=== PATIENT | female | born 1965 | race Two or more races ===

== ENCOUNTER 2016-12-06 04:05 | Emergency (ER) | payer MEDICAID ==
[~2016-12-06] VITALS: Ht 157.5 cm; Wt 63.5 kg
[~2016-12-06 04:05] MED LIST: DEPAKOTE
[2016-12-06 04:55] VITALS: BP 128/64
[2016-12-06] MEDS ORDERED: cefTRIAXone SOD 1,000 MG VL IM ONE (05:15)
[2016-12-06 05:19] LABS: Urine RBC None Seen /hpf (0 - 4)
[2016-12-06 05:29] LABS: Urine Bilirubin Negative (Negative); Urine Blood Negative /uL (Negative); Urine Glucose Normal (Normal); Urine Ketone Negative (Negative); Urine Nitrite Negative (Negative); Urine Urobilinogen Normal (Negative)
[2016-12-06 05:30] LABS: Urine Color Straw (Yellow)
== END 2016-12-06 05:44 | disposition home or self-care (01) ==
LOC: EDUNIT# 04:05 → EDBD 04:05 → ER 04:09
DX: N39.0 Urinary tract infection, site not specified (principal); Z79.899 Other long term (current) drug therapy
CPT/HCPCS: 81001; 96372; 99283; J0696

== ENCOUNTER 2020-12-22 19:25 | Emergency (ER) | payer MEDICAID ==
[~2020-12-22] VITALS: Ht 157.5 cm; Wt 56.7 kg
[2020-12-22] MEDS ORDERED: SODIUM CHLORIDE 0.9% 1,000 ML IV ONE ×2 (19:45)
[2020-12-23 00:11] LABS: Magnesium 2.1 mg/dL (1.6-2.6)
[2020-12-23 00:57] LABS: Urine Bacteria FEW /hpf (None Seen); Urine Blood Negative /uL (Negative); Urine Mucus FEW (None Seen); Urine WBC 66 /hpf (0 - 5)
[2020-12-23] MEDS ORDERED: levoFLOXacin 500 MG TAB PO ONE (02:45)
[2020-12-23 04:00] VITALS: BP 119/46
== END 2020-12-23 04:41 | disposition home or self-care (01) ==
LOC: EDBD 19:25 → ER 19:27
DX: R53.1 Weakness (principal); R42 Dizziness and giddiness
CPT/HCPCS: 36415; 70450; 71045; 74176; 81001; 83735; 83880; 84484; 93005; 96360; 99285; J7030

== ENCOUNTER 2021-07-16 20:12 | Emergency (ER) | payer MEDICAID ==
[~2021-07-16] VITALS: Ht 157.5 cm; Wt 59.0 kg
[2021-07-16 21:11] LABS: Basophils # (auto) 0 10 ^3/uL (0-0.2); Basophils % (auto) 0.7 % (0.0-2.0); Eosinophils # (auto) 0.1 10 ^3/uL (0-0.8); Eosinophils % (auto) 1.1 % (0.0-7.0); Hemoglobin 12.9 g/dL (12.2-16.2); Lymphocytes # (auto) 1.9 10 ^3/uL (0.4-5.4); Lymphocytes % (auto) 29.6 % (10.0-50.0); Mean Corpuscular Hemoglobin 33.1 pg (28.0-32.0); Mean Corpuscular Volume 94.4 fL (80.0-100.0); Monocytes # (auto) 0.4 10 ^3/uL (0-1.3); Monocytes % (auto) 6.9 % (0.0-12.0); Neutrophils % (auto) 61.7 % (37.0-80.0); Nucleated Red Blood Cells % 0.1 %; Red Blood Cells 3.91 10^6/uL (4.0-5.20); Red Cell Distribution Width 13.8 % (11.8-14.3); White Blood Cell 6.4 10^3/uL (4.4-10.8)
[2021-07-16 21:26] LABS: Potassium 3.8 mmol/L (3.5-5.1)
[2021-07-16 21:29] LABS: Albumin 3.7 g/dL (3.4-5.0); BUN/Creatinine Ratio 15.7; Calcium 9.8 mg/dL (8.5-10.1)
[2021-07-16 21:45] LABS: Bilirubin, Total 0.4 mg/dL (0.2-1.0); Total Protein 7.5 g/dL (6.4-8.2)
[2021-07-17 02:30] VITALS: BP 137/51
[2021-07-17] MEDS ORDERED: NITR-87 PO (20:27)
[2021-07-22] MEDS ORDERED: DIVA500T2 PO (14:52)
[2021-07-22] MEDS ORDERED: LAMO25CH17 PO (14:52)
[2021-07-22] MEDS ORDERED: IBU600T PO (14:52)
== END 2021-07-17 04:05 | disposition home or self-care (01) ==
LOC: ER 20:14
DX: R42 Dizziness and giddiness (principal); Z59.00 Homelessness unspecified
CPT/HCPCS: 36415; 80053; 84484; 85025; 93005

== ENCOUNTER → 2021-07-17 10:19 | Emergency (ER) | payer MEDICAID ==
[~2021-07-17] VITALS: Ht 165.1 cm; Wt 69.9 kg
[~2021-07-17 10:19] MED LIST changes: +DIVA500T2 PO; +IBU600T PO; +LAMO25CH17 PO; +NITR-87 PO
[2021-07-17 11:15] LABS: Basophils # (auto) 0.1 10 ^3/uL (0-0.2); Basophils % (auto) 0.9 % (0.0-2.0); Eosinophils # (auto) 0.1 10 ^3/uL (0-0.8); Eosinophils % (auto) 1.2 % (0.0-7.0); Hematocrit 36.6 % (36.0-46.0); Hemoglobin 12.7 g/dL (12.2-16.2); Lymphocytes # (auto) 1.5 10 ^3/uL (0.4-5.4); Lymphocytes % (auto) 23.9 % (10.0-50.0); Mean Corpuscular Hemoglobin 32.7 pg (28.0-32.0); Mean Corpuscular Hgb Conc. 34.7 g/dL (32.0-36.0); Mean Corpuscular Volume 94.2 fL (80.0-100.0); Monocytes # (auto) 0.4 10 ^3/uL (0-1.3); Monocytes % (auto) 6.5 % (0.0-12.0); Neutrophils # (auto) 4.3 10 ^3/uL (1.6-8.6); Neutrophils % (auto) 67.5 % (37.0-80.0); Red Blood Cells 3.89 10^6/uL (4.0-5.20); Red Cell Distribution Width 13.8 % (11.8-14.3); White Blood Cell 6.4 10^3/uL (4.4-10.8)
[2021-07-17 11:36] LABS: Albumin 3.7 g/dL (3.4-5.0); BUN/Creatinine Ratio 17.1; Calcium 9.4 mg/dL (8.5-10.1); Magnesium 2.3 mg/dL (1.6-2.6); Potassium 3.8 mmol/L (3.5-5.1)
[2021-07-17 11:39] LABS: Bilirubin, Total 0.4 mg/dL (0.2-1.0)
[2021-07-17 16:25] LABS: Urine Bacteria FEW /hpf (None Seen); Urine Blood Negative /uL (Negative); Urine Mucus FEW (None Seen); Urine Specific Gravity 1.031 (1.001-1.035); Urine WBC 4 /hpf (0 - 5)
[2021-07-17 21:15] VITALS: BP 128/69
== END | disposition home or self-care (01) ==
LOC: EDUNIT# 10:18 → ER 10:19 → EDBD 10:19
DX: R42 Dizziness and giddiness (principal); R56.9 Unspecified convulsions; N39.0 Urinary tract infection, site not specified; Z88.6 Allergy status to analgesic agent
CPT/HCPCS: 36415; 70450; 80053; 81001; 83735; 84484; 85025; 93005

== ENCOUNTER 2021-07-19 10:05 | Emergency (ER) | payer MEDICAID ==
[~2021-07-19] VITALS: Ht 157.5 cm; Wt 59.0 kg
[~2021-07-19 10:05] MED LIST changes: -DIVA500T2 PO; -IBU600T PO; -LAMO25CH17 PO
[2021-07-19 10:37] LABS: Basophils # (auto) 0.1 10 ^3/uL (0-0.2); Basophils % (auto) 1.9 % (0.0-2.0); Eosinophils # (auto) 0.1 10 ^3/uL (0-0.8); Eosinophils % (auto) 1.6 % (0.0-7.0); Hematocrit 34.8 % (36.0-46.0); Hemoglobin 12.3 g/dL (12.2-16.2); Lymphocytes # (auto) 1.5 10 ^3/uL (0.4-5.4); Lymphocytes % (auto) 24.8 % (10.0-50.0); Mean Corpuscular Hemoglobin 33.6 pg (28.0-32.0); Mean Corpuscular Hgb Conc. 35.3 g/dL (32.0-36.0); Monocytes # (auto) 0.5 10 ^3/uL (0-1.3); Monocytes % (auto) 9.3 % (0.0-12.0); Neutrophils # (auto) 3.7 10 ^3/uL (1.6-8.6); Neutrophils % (auto) 62.4 % (37.0-80.0); Red Blood Cells 3.67 10^6/uL (4.0-5.20); Red Cell Distribution Width 13.7 % (11.8-14.3); White Blood Cell 5.9 10^3/uL (4.4-10.8)
[2021-07-19 10:59] LABS: Albumin 3.5 g/dL (3.4-5.0); Calcium 9.1 mg/dL (8.5-10.1)
[2021-07-19 11:13] LABS: BUN/Creatinine Ratio 18.3; Bilirubin, Total 0.2 mg/dL (0.2-1.0); Total Protein 7.6 g/dL (6.4-8.2)
[2021-07-19 14:35] VITALS: BP 114/74
== END 2021-07-19 14:44 | disposition home or self-care (01) ==
LOC: ER 10:05
DX: R07.89 Other chest pain (principal); I10 Essential (primary) hypertension; R42 Dizziness and giddiness; Z90.710 Acquired absence of both cervix and uterus; Z88.6 Allergy status to analgesic agent
CPT/HCPCS: 36415; 71045; 80053; 84484; 85025; 93005

== ENCOUNTER 2021-07-20 13:40 | Inpatient (IN) | payer MEDICAID ==
[~2021-07-20] VITALS: Ht 157.5 cm; Wt 56.8 kg
[2021-07-20 16:05] LABS: Basophils # (auto) 0.1 10 ^3/uL (0-0.2); Eosinophils # (auto) 0.1 10 ^3/uL (0-0.8); Eosinophils % (auto) 1.6 % (0.0-7.0); Hematocrit 39.1 % (36.0-46.0); Hemoglobin 13.2 g/dL (12.2-16.2); Lymphocytes # (auto) 1.5 10 ^3/uL (0.4-5.4); Lymphocytes % (auto) 27.1 % (10.0-50.0); Mean Corpuscular Hemoglobin 32.4 pg (28.0-32.0); Mean Corpuscular Hgb Conc. 33.9 g/dL (32.0-36.0); Mean Corpuscular Volume 95.6 fL (80.0-100.0); Monocytes # (auto) 0.3 10 ^3/uL (0-1.3); Monocytes % (auto) 6.3 % (0.0-12.0); Neutrophils # (auto) 3.5 10 ^3/uL (1.6-8.6); Nucleated Red Blood Cells % 0.1 %; Red Blood Cells 4.09 10^6/uL (4.0-5.20); Red Cell Distribution Width 13.6 % (11.8-14.3); White Blood Cell 5.5 10^3/uL (4.4-10.8)
[2021-07-20 16:15] LABS: Alanine Aminotransferase 14 U/L (13-56); Albumin 3.7 g/dL (3.4-5.0); Anion Gap 9 (5-15); Aspartate Aminotransferase 11 U/L (15-37); BUN/Creatinine Ratio 11.4; Blood Alcohol < 3.0 mg/dL (0-5); Blood Urea Nitrogen 8 mg/dL (7-18); Calcium 9.5 mg/dL (8.5-10.1); Carbon Dioxide 25 mmol/L (21-32); Chloride 106 mmol/L (98-107); GFR African American 112 mL/min; GFR Non-African American 92 mL/min; Glucose 83 mg/dL (74-106); Magnesium 2.3 mg/dL (1.6-2.6); Potassium 4.1 mmol/L (3.5-5.1); Sodium 140 mmol/L (136-145)
[2021-07-20 16:18] LABS: Alkaline Phosphatase 91 U/L (45-117); Bilirubin, Total 0.4 mg/dL (0.2-1.0); Total Protein 7.7 g/dL (6.4-8.2)
[2021-07-20 16:57] LABS: Urine Bacteria FEW /hpf (None Seen); Urine Blood TRACE /uL (Negative); Urine Specific Gravity 1.015 (1.001-1.035); Urine WBC 2 /hpf (0 - 5)
[2021-07-20] MEDS ORDERED: MECLIZINE HCL 25 MG TAB PO ONE (21:45)
[2021-07-20] MEDS ORDERED: ONDANSETRON HCL 4 MG/2 ML VIAL IV ONE (21:45)
[2021-07-20] MEDS ORDERED: D5W/SOD CHL 0.45% 1,000 ML IV SCH (22:00)
[2021-07-20] MEDS ORDERED: DOCUSATE SOD 100 MG CAP PO PRN (22:00)
[2021-07-20] MEDS ORDERED: MECLIZINE HCL 25 MG TAB PO PRN (22:00)
[2021-07-20] MEDS ORDERED: LABETALOL HCL 5 MG/ML 4ML SYRINGE IV PRN (22:00)
[2021-07-20] MEDS ORDERED: ONDANSETRON HCL 4 MG/2 ML VIAL IV PRN (22:00)
[2021-07-20] MEDS ORDERED: NITROGLYCERIN 0.4 MG SL TAB SL PRN (23:30)
[2021-07-20] MEDS ORDERED: MORPHINE SULFATE INJECTION 2 MG/ML SYRG IV PRN (23:30)
[2021-07-20] MEDS ORDERED: lamoTRIgine 25 MG TAB PO ONE (23:30)
[2021-07-21] VITALS (9 sets, daily range): BP systolic 93–143; BP diastolic 35–70
[2021-07-21 08:17] LABS: Basophils # (auto) 0.1 10 ^3/uL (0-0.2); Basophils % (auto) 1.1 % (0.0-2.0); Eosinophils # (auto) 0.1 10 ^3/uL (0-0.8); Eosinophils % (auto) 2.3 % (0.0-7.0); Hematocrit 34.9 % (36.0-46.0); Hemoglobin 12.1 g/dL (12.2-16.2); Lymphocytes # (auto) 1.6 10 ^3/uL (0.4-5.4); Lymphocytes % (auto) 32.3 % (10.0-50.0); Mean Corpuscular Hemoglobin 32.9 pg (28.0-32.0); Mean Corpuscular Hgb Conc. 34.7 g/dL (32.0-36.0); Mean Corpuscular Volume 94.7 fL (80.0-100.0); Monocytes # (auto) 0.4 10 ^3/uL (0-1.3); Monocytes % (auto) 8.6 % (0.0-12.0); Neutrophils # (auto) 2.8 10 ^3/uL (1.6-8.6); Neutrophils % (auto) 55.7 % (37.0-80.0); Nucleated Red Blood Cells % 0.2 %; Red Blood Cells 3.68 10^6/uL (4.0-5.20); Red Cell Distribution Width 13.5 % (11.8-14.3); White Blood Cell 5.1 10^3/uL (4.4-10.8)
[2021-07-21 08:46] LABS: Albumin 3.2 g/dL (3.4-5.0); Calcium 8.8 mg/dL (8.5-10.1); Potassium 3.6 mmol/L (3.5-5.1)
[2021-07-21 08:50] LABS: BUN/Creatinine Ratio 12.7; Bilirubin, Total 0.5 mg/dL (0.2-1.0)
[2021-07-21] MEDS: ENOXAPARIN SOD 40 MG/0.4 ML SYRINGE SC SCH (11:15)
[2021-07-21] MEDS: lamoTRIgine 25 MG TAB PO SCH ×2 (11:16→22:06)
[2021-07-21] MEDS: SODIUM CHLORIDE 0.9% 1,000 ML IV SCH ×2 (11:37→19:15)
[2021-07-21 12:44] LABS: CRP High Sensitivity 0.4 mg/dL (< 0.3)
[2021-07-21] MEDS: MECLIZINE HCL 25 MG TAB PO SCH ×2 (14:02→22:06)
[2021-07-21] MEDS ORDERED: ACETAMINOPHEN 325 MG TAB PO PRN (15:00)
[2021-07-21 15:04] LABS: Alcohol, Urine < 3.0 mg/dL (0-10); Amphetamine Screen, Urine NEGATIVE (NEGATIVE); Barbiturate Scree,Urine POSITIVE (NEGATIVE); Benzodiazephine Screen, Urine NEGATIVE (NEGATIVE); Cannabinoid Screen, Urine NEGATIVE (NEGATIVE); Cocaine Screen, Urine NEGATIVE (NEGATIVE); Opiate Scree,Urine NEGATIVE (NEGATIVE); Phencyclidine Screen, Urine NEGATIVE (NEGATIVE)
[2021-07-21] MEDS ORDERED: IBUPROFEN 600 MG TAB PO PRN (17:00)
[2021-07-22 05:00] VITALS: BP 108/42
[2021-07-22] MEDS: SODIUM CHLORIDE 0.9% 1,000 ML IV SCH ×3 (05:16→11:31)
[2021-07-22] MEDS: MECLIZINE HCL 25 MG TAB PO SCH ×2 (06:27→14:48)
[2021-07-22 09:00] VITALS: BP 116/51
[2021-07-22] MEDS: ENOXAPARIN SOD 40 MG/0.4 ML SYRINGE SC SCH ×2 (10:00→11:30)
[2021-07-22] MEDS: lamoTRIgine 25 MG TAB PO SCH (10:00)
[2021-07-22 12:33] LABS: Folate (Folic Acid) 15.34 ng/mL (5.38-24)
[2021-07-22 13:00] VITALS: BP 113/53
[2021-07-22] MEDS ORDERED: DIVA500T2 PO ×2 (14:52)
[2021-07-22] MEDS ORDERED: IBU600T PO ×2 (14:52)
[2021-07-22] MEDS ORDERED: LAMO25CH17 PO ×2 (14:52)
[2021-07-22 16:06] VITALS: BP 131/54
[2021-07-22 16:39] VITALS: BP 131/54
== END 2021-07-22 18:51 | disposition home or self-care (01) | DRG 111 ==
LOC: ER 13:40 → EDBD 13:40 → EDUNIT# 13:40 → EAST 23:17
PROVIDERS: ADMIT Nurse Practitioner Family; ATTEND Internal Medicine
DX: R42 Dizziness and giddiness (principal); G40.909 Epilepsy, unspecified, not intractable, without status epilepticus; R53.1 Weakness; R26.81 Unsteadiness on feet; I10 Essential (primary) hypertension; Z20.822 Contact with and (suspected) exposure to COVID-19; Z59.00 Homelessness unspecified; Z90.710 Acquired absence of both cervix and uterus
CPT/HCPCS: 36415; 70450; 70545; 70547; 70551; 71045; 80053; 80061; 80307; 80320; 81001; 82306; 82607; 82746; 83605; 83735; 84425; 84443; 84484; 85025; 86141; 93005; 93306; 96361; 96374; 97163; G0378; J2405

== ENCOUNTER 2024-07-13 11:58 | Emergency (ER) | payer MEDICAID ==
[~2024-07-13] VITALS: Ht 157.5 cm; Wt 57.0 kg
[~2024-07-13 11:58] MED LIST changes: -DEPAKOTE; +DIVA-91 PO; +IBU600T PO; +LAMO25CH21 PO; -NITR-87 PO
--- NOTE | 2024-07-13 12:55 | DVH ---
Indication: r hip pain, fall Technique: CT axial images of the abdomen and pelvis are obtained without contrast. Coronal and sagit jorge reformats were obtained. Radiation Dose Information: CTDI volume is 5.45 mGy. Dose-length product is 286.78 mGy*cm Comparison: [facility] on DOS: 07/22/21 FINDINGS: There is limited interpretation of the abdomen and pelvis without administration of intravenous contr ast. Lung bases demonstrate atelectasis. Adrenal gland, spleen and pancreas unremarkable in shape. Cholelithiasis. Liver unremarkable. Kidneys demonstrate no hydronephrosis or nephrolithiasis. Stomach partially distended. Small bowel loops are normal in caliber. Colonic diverticular disease. Moderate volume stool in the colon. Normal appendix. Abdominal aortic atherosclerotic disease. Bladder is partially distended. No free pelvic fluid no ing uinal lymphadenopathy. No aggressive osseous process. Right lateral thigh soft tissue contusion. Severe degenerative changes of the right hip. Lumbar levocurvature. Moderate lumbar degenerative disc disease. IMPRESSION: 1. Right lateral thigh / hip contusion. No fracture identified. 2. Severe degenerate changes of the right hip. 3. Cholelithiasis 4. Atherosclerotic disease. 5. Colonic diverticular disease. 6. Findings as described.
--- NOTE | 2024-07-13 13:04 | ED.PDOC ---
Musculoskeletal HPI Comments 58y F who presents to the ED for chief complaint of fall injury. - pt states she was getting out of bus and states she fell and landed on the curb on her R side to help break her fall - pt states since fall, she has been having R hip pain radiating to the her R knee down to her R leg - pt denies any associated head injury or loc after fall - pt stats after fall, she got up and called [employer] to bring he to the ED, - pt in the ED, states she is having pain ambulating and was placed in wheelchair - pt otherwise denies any chest pain, shortness of breath, headache, dizziness, or any associated symptoms - pt states he otherwise has history of epilepsy and took her seizure meds earlier this AM PMH: epilepsy, PSH: chin surgery Meds: unknown Allergies: denies social history: denies ETOH use, denies tobacco use, denies drug use HPI: Poor Historian. 58-year-old female presents to emergency department status post mechanical fall from a standing position. She landed on her right hip. Denies any head or neck injury or loss of consciousness. Patient has not been able to ambulate much since then. She complains of severe pain with minimal ambulation. She points to her right lateral hip and right thigh and right lower extremity generalized pain. REVIEW OF SYSTEMS: CONSTITUTIONAL: Denies acute: fever, diaphoresis, chills, HEAD: Denies acute: headache, photophobia Eyes: Denies acute: Double vision, vision loss, eye pain, eye discharge. EARS: Denies acute: tinnitus, hearing loss, ear discharge, ear pain, THROAT: Denies acute: sore throat, swelling, difficulty swallowing , pain with swallowing, change in voice. NECK: Denies acute: neck pain, neck swelling, stiff neck. HEART: Denies acute : chest pain, palpitations, LUNGS: Denies acute: SOB, wheezing, cough, hemoptysis ABDOMEN: Denies acute: abdominal pain, Nausea, Vomiting, diarrhea, melena , hematemesis, hematochezia SKIN: Denies acute: rash, redness, lesions, itchiness. EXTREMITIES: Denies acute: calf pain, numbness, tingling, weakness, Denies acute: Low back pain. Neuro: Denies acute: focal neurological deficit, motor or sensory focal neurological deficit, tremors, seizure like activity, confusion, dizziness, change in mental status, loss of bowel or bladder function, cauda equina like symptoms. : Denies acute: dysuria, hematuria, flank pain, increase in urinary frequency. PSYCH: Denies acute: hallucination, suicidal ideation, homicidal ideation. FEMALE: Denies acute: abnormal vaginal bleeding, foul odor, unusual discharge. PHYSICAL EXAM: General: ---[id number]-----acute distress, awake and alert. Head: normocephalic, atraumatic. Neck: supple, trachea is midline, no swelling. Throat: Normal phonation. Eyes:, no erythema, no purulent discharge, no proptosis, no icterus. Heart: regular rate, regular rhythm, no significant murmur appreciated. Lungs: no apparent respiratory distress, Able to speak in full sentences. No wheezing, no rhonchi, no crackles. No stridors Clear to auscultation bilaterally. Abdomen: non tender to palpation, non distended, soft, no guarding, no rebound, + bowel sounds. Neuro: Awake, Alert, oriented to name, self, situation, follows commands GCS=15. Speech is normal. Skin: no petechia, no purpura, no cyanosis, non-pale, not jaundice. Evaluation of the area of complaint right lower extremity: No apparent deformity noted. Patient is neurovascularly intact in the affected extremity. Pedal pulses palpable. Sensory and motor are present. Decreased range of motion secondary to right hip pain. Patient has focal tenderness to palpation over the right lateral hip. Makes eye contact. moves all four extremities. But decreased range of motion of right lower extremity secondary to pain. Face: no apparent facial droop. Patient was seated unable to ambulate secondary to pain. ED COURSE: Chief Complaint: Lower Extremity Time Seen by MD: 13:19 Primary Care Provider: NONE Reviewed Notes: Nurses Notes, Medications, Allergies Allergies: Coded Allergies: Acetaminophen (Verified Allergy, Severe, 07/17/21) Hydrocodone (Verified Allergy, Severe, 07/17/21) Oxycodone (Verified Allergy, Severe, 07/17/21) Home Meds Active Scripts Divalproex Sodium (Depakote) 500 Mg Tab, 1 TAB PO BID, #60 TAB 1 Refill Prov:ABDIFATAH HILL MD 07/22/21 Ibuprofen Micronized (MOTRIN TABLET) 600 Mg Tb, 600 MG PO TID PRN, #30 TAB Prov:ABDIFATAH HILL MD 07/22/21 Lamotrigine (Lamictal) 25 Mg Ch, 75 MG PO BID, #90 TAB.CHEW Prov:ABDIFATAH HILL MD 07/22/21 Information Source: Patient Mode of Arrival: Wheelchair Past Medical History PAST MEDICAL HISTORY: HTN, Seizures Surgical History: Hysterectomy PUBLIC ADMINISTRATION TEACHER History: No Pertinent PUBLIC ADMINISTRATION TEACHER History Family History Family History: Reviewed,noncontributory to illness Social History Smoker: Non-Smoker Alcohol: Denies ETOH Use Drugs: Denies Drug Use Lives In: Homeless Was a procedure done? Was a procedure done?: No Differential Diagnosis EXT Differential Diagnosis: Cellulitis, Deep Vein Thrombosis, Compartment Syndrome, Fracture, Sprain, Dislocation, Laceration, Gout, DJD, Contusion, Strain, Septic, Neurovascular injury, Arthritis, Bursitis X-Ray, Labs, Meds, VS Vital Signs Date Time Temp Pulse Resp B/P (MAP) Pulse Ox O2 Delivery O2 Flow Rate FiO2 07/13/24 14:30 98.2 78 16 124/59 (80) 97 98.2 07/13/24 14:30 78 16 97 Room Air 07/13/24 12:08 99.5 104 16 116/76 (89) 97 99.5 Lab Test 07/13/24 13:08 Range/Units White Blood Count 6.5 4.4-10.8 10^3/uL Red Blood Count 3.86 L 4.0-5.20 10^6/uL Hemoglobin 12.6 12.2-16.2 g/dL Hematocrit 36.8 36.0-46.0 % Mean Corpuscular Volume 95.5 80.0-100.0 fL Mean Corpuscular Hemoglobin 32.7 H 28.0-32.0 pg Mean Corpuscular Hemoglobin Concent 34.2 32.0-36.0 g/dL Red Cell Distribution Width 13.7 11.8-14.3 % Platelet Count 318 140-450 10^3/uL Mean Platelet Volume 7.1 6.9-10.8 fL Neutrophils (%) (Auto) 70.9 37.0-80.0 % Lymphocytes (%) (Auto) 18.5 10.0-50.0 % Monocytes (%) (Auto) 8.6 0.0-12.0 % Eosinophils (%) (Auto) 1.3 0.0-7.0 % Basophils (%) (Auto) 0.7 0.0-2.0 % Neutrophils # (Auto) 4.6 1.6-8.6 10 ^3/uL Lymphocytes # (Auto) 1.2 0.4-5.4 10 ^3/uL Monocytes # (Auto) 0.6 0-1.3 10 ^3/uL Eosinophils # (Auto) 0.1 0-0.8 10 ^3/uL Basophils # (Auto) 0 0-0.2 10 ^3/uL Nucleated Red Blood Cells 0.1 % Sodium Level 143 136-145 mmol/L Potassium Level 3.7 3.5-5.1 mmol/L Chloride Level 108 H 98-107 mmol/L Carbon Dioxide Level 27 20-31 mmol/L Anion Gap 8 5-15 Blood Urea Nitrogen 13 9-23 mg/dL Creatinine 0.75 0.550-1.02 mg/dL Glomerular Filtration Rate Calc 92 >90 mL/min BUN/Creatinine Ratio 17.3 10.0-20.0 Serum Glucose 94 74-106 mg/dL Calcium Level 10.0 8.7-10.4 mg/dL Total Bilirubin 0.5 0.2-1.0 mg/dL Aspartate Amino Transferase (AST) 70 H 13-40 U/L Alanine Aminotransferase (ALT) 27 7-40 U/L Alkaline Phosphatase 76 46-116 U/L Total Protein 7.2 5.7-8.2 g/dL Albumin 4.3 3.2-4.8 g/dL [address] [address] Ph: [phone] DIAGNOSTIC IMAGING Diagnostic Imaging Report : [id number] Signed PATIENT: GRAEME SINGH ACCT: [id number] UNIT: [id number] : 1965 LOC: ER ROOM / BED: / AGE / SEX: 58 / F ADM STATUS: REG ER SERVICE 1454 ORDERING PHYSICIAN: SERENA HERNANDEZ DO PROCEDURE(s): RLDVT - RT Lower DVT REASON: fall, pain ORDER NUMBER(s): [id number], ACCESSION NUMBER(s): [id number] Right lower extremity venous duplex Clinical History: fall, pain Comparison: None Technique: Duplex Doppler evaluation of the deep venous system of the right lower extremity from the common femoral vein to the popliteal vein including color Doppler and spectral/pulsed waveform analysis was performed. Findings: The common femoral vein demonstrates appropriate compressibility and waveform variability. There is compressibility/patency of the great saphenous vein at the proximal thigh. The femoral vein demonstrates appropriate compressibility and waveform variability. The deep femoral vein demonstrates appropriate compressibility and waveform variability. The popliteal vein demonstrates appropriate compressibility and waveform variability. There is normal compressibility at the tibioperoneal trunk. Impression: 1. No right femoropopliteal venous thrombosis. ATED BY: SARAH AYALA MD DICTATED DATE/TIME: 07/13/24 152 SIGNED BY: SARAH AYALA MD SIGNED DATE/TIME: 07/13/24 1528 CC: [place] [id number] Ph: [phone] DIAGNOSTIC IMAGING Diagnostic Imaging Report : [id number] Signed PATIENT: GRAEME SINGH ACCT: [id number] UNIT: [id number] : 1965 LOC: ER ROOM / BED: / AGE / SEX: 58 / F ADM STATUS: REG ER SERVICE 1220 ORDERING PHYSICIAN: SERENA HERNANDEZ DO PROCEDURE(s): ABPL - CT AB PEL WO CON-NO ORAL OR IV REASON: r hip pain, fall ORDER NUMBER(s): [id number], ACCESSION NUMBER(s): [id number] Indication: r hip pain, fall Technique: CT axial images of the abdomen and pelvis are obtained without contrast. Coronal and sagittal reformats were obtained. Radiation Dose Information: CTDI volume is 5.45 mGy. Dose-length product is 286.78 mGy*cm Comparison: [facility] on DOS: 07/22/21 FINDINGS: There is limited interpretation of the abdomen and pelvis without administration of intravenous contrast. Lung bases demonstrate atelectasis. Adrenal gland, spleen and pancreas unremarkable in shape. Cholelithiasis. Liver unremarkable. Kidneys demonstrate no hydronephrosis or nephrolithiasis. Stomach partially distended. Small bowel loops are normal in caliber. Colonic diverticular disease. Moderate volume stool in the colon. Normal appendix. Abdominal aortic atherosclerotic disease. Bladder is partially distended. No free pelvic fluid no inguinal lymphadenopathy. No aggressive osseous process. Right lateral thigh soft tissue contusion. Severe degenerative changes of the right hip. Lumbar levocurvature. Moderate lumbar degenerative disc disease. IMPRESSION: 1. Right lateral thigh / hip contusion. No fracture identified. 2. Severe degenerate changes of the right hip. 3. Cholelithiasis 4. Atherosclerotic disease. 5. Colonic diverticular disease. 6. Findings as described. ATED BY: KEN COREA MD DICTATED DATE/TIME: 07/13/241252 SIGNED BY: KEN COREA MD SIGNED DATE/TIME: 07/13/241252 CC: [place] [id number] Ph: [phone] DIAGNOSTIC IMAGING Diagnostic Imaging Report : [id number] Signed PATIENT: GRAEME SINGH ACCT: [id number] UNIT: [id number] : 1965 LOC: ER ROOM / BED: / AGE / SEX: 58 / F ADM STATUS: REG ER SERVICE 54 ORDERING PHYSICIAN: SERENA HERNANDEZ DO PROCEDURE(s): RTBFB - R TIB FIB XRAY REASON: fall ORDER NUMBER(s): [id number], ACCESSION NUMBER(s): [id number] CLINICAL INDICATION: fall, trauma, pain TECHNIQUE: XY R TIB FIB XRAY Comparison: None FINDINGS/IMPRESSION: : There is no evidence of acute fracture or dislocation. Soft tissues are unremarkable. ATED BY: RYAN WALKER MD DICTATED DATE/TIME: 07/13/24 1400 SIGNED BY: RYAN WALKER MD SIGNED DATE/TIME: 07/13/24 1400 CC: [address] - [id number] Ph: [phone] DIAGNOSTIC IMAGING Diagnostic Imaging Report : [id number] Signed PATIENT: GRAEME SINGH ACCT: [id number] UNIT: [id number] : 1965 LOC: ER ROOM / BED: / AGE / SEX: 58 / F ADM STATUS: REG ER SERVICE 1255 ORDERING PHYSICIAN: SERENA HERNANDEZ DO PROCEDURE(s): RFEM - R FEMUR XRAY REASON: fall ORDER NUMBER(s): [id number], ACCESSION NUMBER(s): [id number] CLINICAL INDICATION: fall, trauma, pain TECHNIQUE: XY R FEMUR XRAY Comparison: None FINDINGS/IMPRESSION: : There is no evidence of acute fracture or dislocation. Severe degenerative changes of the right hip. ATED BY: RYAN WALKER MD DICTATED DATE/TIME: 07/13/241399 SIGNED BY: RYAN WALKER MD SIGNED DATE/TIME: 07/13/241399 CC: Time of 1ST Reevaluation: 22:54 Reevaluation 1ST: Improved Patient Education/Counseling: Diagnosis, Treatment Family Education/Counseling: No Family Present Comments Patient presented with the above HPI.--right hip pain/fall----workup was initiated. patient was found with the above mentioned diagnosis. the following medications were ordered: please refer to order lists of meds and tests obtained by myself Dr. Hernandez. Patient ED course and VS have been stabilized. Patient has been reassessed in the ED and remained in a stable condition. Pertinent incidental findings were discussed with the patient and/or family. Patient/family voices understanding and is agreeable with plan. Patient has been observed in the ED adequate length of time to insure improvement/stability. Escalation of care considered: Consideration of escalation to observation or admission Patient was unable to ambulate and bear weight. Patient was admitted for pain control and further evaluation Patient was ADMITTED to the medicine team for further evaluation and treatment of their presentation. All the reports of any imaging studies that were ordered by myself were reviewed by myself. Departure 1 Departure Time of Disposition: 16:09 Impression: Primary Impression: Contusion of hip, right Disposition: ADMITTED INPATIENT Admit to: Tele Condition: Guarded Discharged With: Self Critical Care Note Critical Care Time?: No I personally scribed for SERENA HERNANDEZ DO ([email or web address]) on 07/13/24 at 13:04. Electronically submitted by Rigoberto Gonzalez ([facility]). I personally scribed for SERENA HERNANDEZ DO ([email or web address]) on 07/13/24 at 13:20. Electronically submitted by Rigoberto Gonzalez ([email or web address]). I personally scribed for SERENA HERNANDEZ DO ([email or web address]) on 07/13/24 at 16:32. Electronically submitted by Rigoberto Gonzalez ([facility]). SERENA HERNANDEZ DO July 13, 2024 13:04
[2024-07-13 13:16] LABS: Basophils # (auto) 0 10 ^3/uL (0-0.2); Basophils % (auto) 0.7 % (0.0-2.0); Eosinophils # (auto) 0.1 10 ^3/uL (0-0.8); Eosinophils % (auto) 1.3 % (0.0-7.0); Hematocrit 36.8 % (36.0-46.0); Hemoglobin 12.6 g/dL (12.2-16.2); Lymphocytes # (auto) 1.2 10 ^3/uL (0.4-5.4); Lymphocytes % (auto) 18.5 % (10.0-50.0); Mean Corpuscular Hemoglobin 32.7 pg (28.0-32.0); Mean Corpuscular Hgb Conc. 34.2 g/dL (32.0-36.0); Mean Corpuscular Volume 95.5 fL (80.0-100.0); Monocytes # (auto) 0.6 10 ^3/uL (0-1.3); Monocytes % (auto) 8.6 % (0.0-12.0); Neutrophils # (auto) 4.6 10 ^3/uL (1.6-8.6); Neutrophils % (auto) 70.9 % (37.0-80.0); Nucleated Red Blood Cells % 0.1 %; Platelet Count (auto) 318 10^3/uL (140-450); Red Blood Cells 3.86 10^6/uL (4.0-5.20); Red Cell Distribution Width 13.7 % (11.8-14.3); White Blood Cell 6.5 10^3/uL (4.4-10.8)
[2024-07-13 13:36] LABS: Alanine Aminotransferase 27 U/L (7-40); Albumin 4.3 g/dL (3.2-4.8); Alkaline Phosphatase 76 U/L (46-116); Anion Gap 8 (5-15); Aspartate Aminotransferase 70 U/L (13-40); BUN/Creatinine Ratio 17.3 (10.0-20.0); Bilirubin, Total 0.5 mg/dL (0.2-1.0); Blood Urea Nitrogen 13 mg/dL (9-23); Carbon Dioxide 27 mmol/L (20-31); Chloride 108 mmol/L (98-107); Glucose 94 mg/dL (74-106); Potassium 3.7 mmol/L (3.5-5.1); Sodium 143 mmol/L (136-145); Total Protein 7.2 g/dL (5.7-8.2)
--- NOTE | 2024-07-13 14:02 | DVH ---
CLINICAL INDICATION: fall, trauma, pain TECHNIQUE: XY R FEMUR XRAY Comparison: None FINDINGS/IMPRESSION: : There is no evidence of acute fracture or dislocation. Severe degenerative changes of the right hip.
--- NOTE | 2024-07-13 14:02 | DVH ---
CLINICAL INDICATION: fall, trauma, pain TECHNIQUE: XY R TIB FIB XRAY Comparison: None FINDINGS/IMPRESSION: : There is no evidence of acute fracture or dislocation. Soft tissues are unremarkable.
[2024-07-13 14:30] VITALS: BP 124/59; PULSE 78; RESP 16; TEMP 98.2; O2SAT 97
--- NOTE | 2024-07-13 15:31 | DVH ---
Right lower extremity venous duplex Clinical History: fall, pain Comparison: None Technique: Duplex Doppler evaluation of the deep venous system of the right lower extremity from the common femo ral vein to the popliteal vein including color Doppler and spectral/pulsed waveform analysis was perf ormed. Findings: The common femoral vein demonstrates appropriate compressibility and waveform variability. There is compressibility/patency of the great saphenous vein at the proximal thigh. The femoral vein demonstrates appropriate compressibility and waveform variability. The deep femoral vein demonstrates appropriate compressibility and waveform variability. The popliteal vein demonstrates appropriate compressibility and waveform variability. There is normal compressibility at the tibioperoneal trunk. Impression: 1. No right femoropopliteal venous thrombosis.
[2024-07-13] MEDS ORDERED: HYDROcodone-ACET 5/325MG TAB PO ONE (16:15)
[2024-07-13] MEDS ORDERED: traMADol HCL 50 MG TAB PO ONE (16:30)
== END 2024-07-13 20:39 | disposition left against medical advice (07) ==
LOC: ER 11:58
DX: S70.01XA Contusion of right hip, initial encounter (principal); G40.909 Epilepsy, unspecified, not intractable, without status epilepticus; I10 Essential (primary) hypertension; Z59.00 Homelessness unspecified; Z79.899 Other long term (current) drug therapy; Z88.5 Allergy status to narcotic agent; Z98.890 Other specified postprocedural states; Z90.710 Acquired absence of both cervix and uterus; V79.88XA Bus occupant (driver) (passenger) injured in other specified transport accidents, initial encounter; Y93.89 Activity, other specified; Y92.89 Other specified places as the place of occurrence of the external cause; Y99.8 Other external cause status
CPT/HCPCS: 36415; 73590; 74176; 80053; 85025; 93971

== ENCOUNTER 2024-11-02 17:20 | Emergency (ER) | payer MEDICAID ==
[~2024-11-02] VITALS: Ht 157.5 cm; Wt 57.0 kg
[2024-11-02 17:30] VITALS: PULSE 95; RESP 15; O2SAT 98
[2024-11-02 17:43] VITALS: TEMP 98.6
--- NOTE | 2024-11-02 18:14 | ED.PDOC ---
HPI (NEURO) HPI Comments 59 year old female presents to the ED via EMS with a chief compliant of seizure onset today (11/02/24). Patient states she ran out of seizure medication, Lamotrigine 250 mg, has tried contacting PCP, medication has been sent to wrong pharmacy. Last seizure was on 10/13/24, [place] [facility] was in a car with her niece, began feeling sleepy, does not recall events afterwards, she woke up and was on niece's driveway. PMHx seizure, HTN. Denies dizziness, nausea, vomiting, diarrhea, fever, chills, abdominal pain,chest pain. No other symptoms or modifying factors present at this time. Chief Complaint: Seizure Time Seen by MD: 18:05 Primary Care Provider: NONE Reviewed Notes: Medications, Allergies Information Source: Patient, Emergency Med Personnel Mode of Arrival: EMS Severity: Moderate Timing: Hours Duration: Since onset Prehospital treatment: None Onset: At rest Circumstances: Spontaneous Before: Normal After: Normal Mentation History of: Hypertension, Seizure Disorder Past Medical History PAST MEDICAL HISTORY: HTN, Seizures Surgical History: Hysterectomy HYDROELECTRIC MECHANIC History: No Pertinent HYDROELECTRIC MECHANIC History Family History Family History: Reviewed,noncontributory to illness Social History Smoker: Non-Smoker Alcohol: Denies ETOH Use Drugs: Denies Drug Use Lives In: Homeless Constitutional: denies: chills, diaphoresis, fatigue, fever, malaise, sweats, weakness, others EENTM: denies: blurred vision, double vision, ear bleeding, ear discharge, ear drainage, ear pain, ear ringing, eye pain, eye redness, hearing loss, mouth pain, mouth swelling, nasal discharge, nose bleeding, nose congestion, nose pain, photophobia, tearing, throat pain, throat swelling, voice changes, others Respiratory: denies: cough, hemoptysis, orthopnea, SOB at rest, shortness of breath, SOB with excertion, stridor, wheezing, others Cardiovascular: denies: chest pain, dizzy spells, diaphoresis, Dyspnea on exertion, edema, irregular heart beat, left arm pain, lightheadedness, palpitations, PND, syncope, others Gastrointestinal: denies: abdomen distended, abdominal pain, blood streaked bowels, constipated, diarrhea, dysphagia, difficulty swallowing, hematemesis, melena, nausea, poor appetite, poor fluid intake, rectal bleeding, rectal pain, vomiting, others Genitourinary: denies: abnormal vagina bleeding, burning, dyspareunia, dysuria, flank pain, frequency, hematuria, incontinence, pain, , vagina discharge, urgency, others Neurological: reports: seizure; denies: dizziness, fainting, headache, left sided numbness, left sided weakness, numbness, paresthesia, pre-existing deficit, right sided numbness, right sided weakness, speech problems, tingling, tremors, weakness, others Musculoskeletal: denies: back pain, gout, joint pain, joint swelling, muscle pain, muscle stiffness, neck pain, others Integumetry: denies: bruises, change in color, change in hair/nails, dryness, laceration, lesions, lumps, rash, wounds, others Allergic/Immunocompromised: denies: Difficulty Healing, Frequent Infections, Hives, Itching, others Hematologic/Lymphatic: denies: anemia, blood clots, easy bleeding, easy bruising, swollen glands, others Endocrine: denies: excessive hunger, excessive sweating, excessive thirst, excessive urination, flushing, intolerance to cold, intolerance to heat, unexplained weight gain, unexplained weight loss, others Psychiatric: denies: anxiety, bipolar disorder, depression, hopeless, panic disorder, schizophrenia, sleepless, suicidal, others All Other Systems: Reviewed and Negative Physical Exam General Appearance: Normal HEENT: Normal ENT Inspection, Pharynx Normal, TMs Normal Neck: Full Range of Motion, Non-Tender, Normal, Normal Inspection Respiratory: Chest Non-Tender, Lungs Clear, No Accessory Muscle Use, No Respiratory Distress, Normal Breath Sounds Cardiovascular: No Edema, No JVD, No Murmur, No Gallop, Normal Peripheral Pulses, Regular Rate/Rhythm Breast Exam: Deferred Gastrointestinal: No Organomegaly, Non Tender, No Pulsatile Mass, Normal Bowel Sounds, Soft Genitalia: Deferred Pelvic: Deferred Rectal: Deferred Extremities: No calf tenderness, Normal capillary refill, Normal inspection, Normal range of motion, Non-tender, No pedal edema Musculoskeletal : Apperance: Normal Neurologic: Alert, tool room lathe operator II-XII nml as Tested, No Motor Deficits, Normal Affect, Normal Mood, No Sensory Deficits Cerebellar Function: Normal Reflexes: Normal Skin: Dry, Normal Color, Warm Lymphatic: No Adenopathy Was a procedure done? Was a procedure done?: No X-Ray, Labs, Meds, VS Vital Signs Date Time Temp Pulse Resp B/P (MAP) Pulse Ox O2 Delivery O2 Flow Rate FiO2 11/02/24 20:20 89 21 114/47 (69) 97 11/02/24 19:50 89 16 98 Room Air* 0 21 11/02/24 18:00 98 21 121/51 (74) 97 11/02/24 17:43 98.6 95 15 104/56 (72) 98 98.6 11/02/24 17:32 98.6 115 18 121/75 96 98.6 11/02/24 17:30 95 15 98 Room Air* 0 21 Lab Test 11/02/24 18:30 11/02/24 17:55 Range/Units White Blood Count 6.3 4.4-10.8 10^3/uL Red Blood Count 4.37 4.0-5.20 10^6/uL Hemoglobin 13.9 12.2-16.2 g/dL Hematocrit 41.1 36.0-46.0 % Mean Corpuscular Volume 94.0 80.0-100.0 fL Mean Corpuscular Hemoglobin 31.8 28.0-32.0 pg Mean Corpuscular Hemoglobin Concent 33.8 32.0-36.0 g/dL Red Cell Distribution Width 14.0 11.8-14.3 % Platelet Count 302 140-450 10^3/uL Mean Platelet Volume 8.1 6.9-10.8 fL Neutrophils (%) (Auto) 63.1 37.0-80.0 % Lymphocytes (%) (Auto) 25.8 10.0-50.0 % Monocytes (%) (Auto) 8.4 0.0-12.0 % Eosinophils (%) (Auto) 1.9 0.0-7.0 % Basophils (%) (Auto) 0.8 0.0-2.0 % Neutrophils # (Auto) 4.0 1.6-8.6 10 ^3/uL Lymphocytes # (Auto) 1.6 0.4-5.4 10 ^3/uL Monocytes # (Auto) 0.5 0-1.3 10 ^3/uL Eosinophils # (Auto) 0.1 0-0.8 10 ^3/uL Basophils # (Auto) 0 0-0.2 10 ^3/uL Nucleated Red Blood Cells 0.1 % Sodium Level 141 136-145 mmol/L Potassium Level 4.1 3.5-5.1 mmol/L Chloride Level 105 98-107 mmol/L Carbon Dioxide Level 25 20-31 mmol/L Anion Gap 11 5-15 Blood Urea Nitrogen 12 9-23 mg/dL Creatinine 0.84 0.550-1.02 mg/dL Glomerular Filtration Rate Calc 80 >90 mL/min BUN/Creatinine Ratio 14.3 10.0-20.0 Serum Glucose 115 H 74-106 mg/dL Calcium Level 9.4 8.7-10.4 mg/dL Magnesium Level 2.0 1.6-2.6 mg/dL POC Glucose 142 H 70-106 mg/dl Current Medications Medications (Trade) Dose Ordered Sig/Daryl Route Start Time Stop Time Status Last Admin Lamotrigine (LaMICtal TABLET) 200 mg ONCE ONCE PO 11/02/24 18:30 11/02/24 18:31 DC 11/02/24 18:43 Time of 1ST Reevaluation: 18:35 Reevaluation 1ST: Unchanged Patient Education/Counseling: Diagnosis, Treatment Family Education/Counseling: No Family Present Departure 1 Departure Time of Disposition: 20:30 Impression: Primary Impression: Seizure Additional Impression: Seizure disorder Disposition: 01 HOME / SELF CARE / HOMELESS Condition: Stable e-Prescriptions Lamotrigine (Lamotrigine) 150 Mg Tab 1 TAB PO BID for 90 Days, #180 TAB 5 Refills Prov: LIYAH CESAR MD 11/02/24 Discharged With: Self Critical Care Note Critical Care Time?: No Stability Stability form required: No I personally scribed for LIYAH CESAR MD ([email or web address]) on 11/02/24 at 18:14. El ectronically submitted by Fariha Marrero ([email or web address]). LIYAH CESAR MD Nov 02, 2024 18:14
[2024-11-02 18:39] LABS: Hematocrit 41.1 % (36.0-46.0); Hemoglobin 13.9 g/dL (12.2-16.2); Mean Corpuscular Hemoglobin 31.8 pg (28.0-32.0); Mean Corpuscular Volume 94.0 fL (80.0-100.0); Nucleated Red Blood Cells % 0.1 %
[2024-11-02] MEDS: lamoTRIgine 100 MG TAB PO ONE (18:43)
[2024-11-02 18:47] LABS: Anion Gap 11 (5-15); Carbon Dioxide 25 mmol/L (20-31); Chloride 105 mmol/L (98-107); Potassium 4.1 mmol/L (3.5-5.1); Sodium 141 mmol/L (136-145)
[2024-11-02 18:48] LABS: Calcium 9.4 mg/dL (8.7-10.4)
[2024-11-02 18:53] LABS: BUN/Creatinine Ratio 14.3 (10.0-20.0); Blood Urea Nitrogen 12 mg/dL (9-23); Magnesium 2.0 mg/dL (1.6-2.6)
[2024-11-02 18:59] LABS: Glucose 115 mg/dL (74-106)
[2024-11-02] MEDS ORDERED: LAMO150T26 PO (19:49)
[2024-11-02 19:50] VITALS: PULSE 89; RESP 16; O2SAT 98
[2024-11-02 20:20] VITALS: BP 114/47; PULSE 89; RESP 21; O2SAT 97
== END 2024-11-02 20:50 | disposition home or self-care (01) ==
LOC: ER 17:20 → EDBD 17:20 → ER 20:50
DX: G40.909 Epilepsy, unspecified, not intractable, without status epilepticus (principal); I10 Essential (primary) hypertension; Z90.710 Acquired absence of both cervix and uterus
CPT/HCPCS: 36415; 80048; 82947; 82962; 83735; 85025